=== PATIENT | female | born 1985 | race Caucasian/White ===

== ENCOUNTER 2021-11-09 23:22 | Emergency (ER) | payer BC, OTHER ==
[2021-11-09 23:56] VITALS: RESP 15; TEMP 98.5
[2021-11-10] MEDS ORDERED: KETOROLAC 15 MG/ML 1 ML VIAL IVP STA (00:35)
[2021-11-10] MEDS ORDERED: SODIUM CHLORIDE 0.9% 1,000 ML IV STA (00:35)
[2021-11-10] MEDS ORDERED: PROCHLORPERAZINE INJ 10 MG/2 ML VIAL IVP STA (00:35)
[2021-11-10] MEDS ORDERED: diphenhydrAMINE 50 MG/ML 1 ML VIAL IVP STA (00:35)
--- NOTE | 2021-11-10 02:42 | ED ---
General Adult HPI - General Chief complaint: Anxiety Stated complaint: Anxiety Time Seen by Provider: 11/10/21 00:25 Source: patient, EMS, RN notes reviewed, old records reviewed Mode of arrival: EMS - History of Present Illness Initial comments: Patient is a 35-year-old female who presents emergency Department complaining of a migraine headache as well as anxiety. She is a history of migraines. She has a history of anxiety. Endorsing a typical migraine headache for herself, describing a belt-like sensation around her head. States the tightness in her throat occasionally. Denies any difficulty breathing. Denies any chest pain. Denies any shortness of breath. Denies any abdominal pain, nausea, vomiting. His no other acute complaints at this time. Presents for further evaluation. Attempted to take her home migraine medication without any relief. She gets headaches on a regular basis. It is not the worst headache of her life. Endorses mild nausea but no vomiting. - Related Data Allergies Allergy/AdvReac Type Severity Reaction Status Date / Time sulfamethoxazole Allergy Itching Verified 11/10/21 00:53 [From Bactrim] trimethoprim [From Bactrim] Allergy Itching Verified 11/10/21 00:53 Review of Systems ROS Statement: Those systems with pertinent positive or pertinent negative responses have been documented in the HPI. Review of Systems: CONST: Denies fever EYES: Denies blurry vision ENT: Denies nasal congestion C/V: Denies Chest pain RESP: Denies shortness of breath GI: Denies abdominal pain : Denies dysuria SKIN: Denies rash. MSK: Denies joint pain. NEURO: Denies headache ROS Other: All systems not noted in ROS Statement are negative. General Exam - General Exam Comments Initial Comments: General: Appears in no acute distress. HEAD: Normal with no signs of head trauma. EYES: PERRLA, EOMI, conjunctiva normal, no discharge. ENT: Hearing grossly intact, normal oropharynx. RESPIRATORY: Clear breath sounds bilaterally. No wheezes, rales, or rhonchi. C/V: Regular rate and rhythm. S1 and S2 auscultated, no edema, peripheral pulses 2+ and intact throughout ABD: Abd is soft, nontender, nondistended EXT: Normal range of motion, no obvious deformity SKIN: No rashes or lesions observed on exposed skin. NEURO: Alert and oriented x 4. Cranial nerves II-XII intact. No focal sensory or strength deficits. Cerebellar function is intact as evident by normal finger-nose testing. NIH is 0. GCS of 15. Course Vital Signs 11/09/21 23:52 Temperature 98.5 F Pulse Rate 88 Respiratory 15 Rate Blood Pressure 133/67 O2 Sat by Pulse 99 Oximetry Medical Decision Making - Medical Decision Making Based on the patient's presentation and physical exam, concern for migraine headache as well as anxiety. She seems to be her typical migraine headache. No red flag features. Vital signs are within normal limits. Did offer her a migraine cocktail, EKG. She was in agreement this plan. EKG shows no signs of ischemia. On reevaluation, patient's headache has resolved. Anxiety has resolved. Like to go home. I believe this is reasonable. She'll be given community mental health resources. Strict return precautions were discussed. I recommended she follow up with them or other therapist. She was in agreement with this plan. I instructed the patient to follow up with their PCP in the next 1-3 days. I explained that the patient should return to the emergency department if they experience any worsening symptoms. Strict return precautions were discussed with the patient. The patient expressed understanding of these instructions. I answered all questions that the patient had. The patient was discharged home in good condition with their prescriptions and follow up information. - EKG Data -: EKG Interpreted by Me EKG Comments: 12-lead Electrocardiogram Interpretation Note EKG was reviewed and interpreted by myself. 12-lead ECG performed at 0230 is interpreted by me as revealing normal sinus rhythm at a rate of 82 beats per minute. [place] is normal. IN interval is 137 ms, QRS duration is 94 ms, QTc is 430 ms.. There were no ST or T wave abnormalities to suggest myocardial ischemia or injury. R wave progression across the precordium was satisfactory. By my interpretation this EKG is non-diagnostic for acute ischemia. Disposition Clinical Impression: Migraine, Acute anxiety Disposition: HOME SELF-CARE Condition: Good Instructions (If sedation given, give patient instructions): Migraine Headache (ED), Anxiety (ED) Is patient prescribed a controlled substance at d/c from ED?: No Referrals: Harman Murdock III, MD [Primary Care Provider] - 1-2 days Time of Disposition: 02:35
[2021-11-10 02:57] VITALS: BP 129/66; PULSE 79
== END 2021-11-10 02:48 | disposition home or self-care (01) ==
LOC: EC 23:22
DX: G43.909 Migraine, unspecified, not intractable, without status migrainosus (principal); F41.9 Anxiety disorder, unspecified; Z88.2 Allergy status to sulfonamides
CPT/HCPCS: 99284; 96374; 96375 ×2; 96361; J1200; J0780; J1885